=== PATIENT | female | born 1960 | race Caucasian/White ===

== ENCOUNTER 2022-05-18 12:10 | Emergency (ER) | payer OTHER ==
[~2022-05-18] VITALS: Ht 167.6 cm; Wt 60.0 kg
[2022-05-18] MEDS ORDERED: CLONIDINE 0.2MG TABLET PO ONE (13:15)
[2022-05-18] MEDS ORDERED: LEVETIRACETAM 500MG PREMIX 100 ML IV ONE (13:15)
[2022-05-18] MEDS ORDERED: SODIUM CHLORIDE 0.9% 1,000 ML IV ONE (13:15)
[2022-05-18 13:21] LABS: BASOPHILS % 0.9 % (0.0-2.0); EOSINOPHILS % 0.6 % (0.0-5.0); HEMATOCRIT. 39.9 % (36.0-48.0); LYMPHOCYTES % 18.4 % (20.0-50.0); MEAN CORPUSCULAR VOLUME 98.2 fL (81.0-99.0); MEAN PLATELET VOLUME 8.9 fl (7.4-10.4); MONOCYTES % 5.7 % (2.0-8.0); NEUTROPHILS % 74.4 % (40.0-76.0); PLATELET 102 x1000/uL (130-400); RED BLOOD CELL COUNT 4.07 mill/uL (4.2-5.4); RED CELL DISTRIBUTION WIDTH 17.7 % (11.6-14.6)
[2022-05-18 13:27] LABS: CHLORIDE 100 mEq/L (98-107)
[2022-05-18] MEDS ORDERED: KEPP500 MT (15:37)
[2022-05-18] MEDS ORDERED: ACETAMINOPHEN 325MG TABLET PO ONE (15:45)
[2022-05-18 16:57] VITALS: BP 168/81
== END 2022-05-18 16:59 | disposition home or self-care (01) ==
LOC: ER 12:10
DX: R56.9 Unspecified convulsions (principal); I10 Essential (primary) hypertension; Z99.2 Dependence on renal dialysis
CPT/HCPCS: 36415; 70450; 71045; 80053; 83735; 84484; 85025; 93005; 96365; 99285; J1953; J7030